=== PATIENT | male | born 1980 | race Two or more races ===

== ENCOUNTER 2024-05-07 19:21 | Emergency (ER) | payer BC, OTHER ==
[~2024-05-07] VITALS: Ht 177.8 cm; Wt 69.6 kg
[2024-05-07] MEDS ORDERED: CEPH250C PO (20:39)
[2024-05-07] MEDS ORDERED: IBUP-1455 PO (20:39)
[2024-05-07] MEDS: TETANUS-DIPTH-ACEL PERTUSSIS 0.5ML SYR Tdap IM ONE (21:20)
[2024-05-07 21:24] VITALS: BP 138/85; PULSE 83; RESP 17; TEMP 98.7; O2SAT 98
== END 2024-05-07 21:26 | disposition home or self-care (01) ==
LOC: ER 19:21
DX: S01.21XA Laceration without foreign body of nose, initial encounter (principal); V89.2XXA Person injured in unspecified motor-vehicle accident, traffic, initial encounter; Y93.89 Activity, other specified; Y92.89 Other specified places as the place of occurrence of the external cause; Y99.8 Other external cause status
CPT/HCPCS: 12011; 90471; 90715

== ENCOUNTER 2024-09-02 19:33 | Emergency (ER) | payer BC ==
[~2024-09-02] VITALS: Ht 172.7 cm; Wt 72.6 kg
[~2024-09-02 19:33] MED LIST: CEPH250C PO; IBUP-1455 PO
[2024-09-02 19:42] VITALS: BP 167/83; PULSE 84; RESP 18; O2SAT 98
--- NOTE | 2024-09-02 19:55 | ED.PDOC ---
History of Present Illness HPI Comments 44 y/o M, with a Hx of EtOH abuse, is BIBA for c/o laceration to his left- eyebrow s/p mechanical fall and injury and ALOC s/p EtOH intoxication, today. Per EMS report, patient was reported by family on scene to have consumed 4x beers prior to losing his balance and falling and hitting his head against the corner of a table, nearby, at home, this evening. Patient was stated to not have lost consciousness then and to have been uncooperative with EMS staff in following commands and answering questions on scene and en route to ED. Patient was reported to not have any additional relevant or pertinent Hx along with any recent additional substance use. Patient, at time of assessment, still remained intoxicated and uncooperative and states on wanting to leave against medical advice amidst attempts to convince him otherwise. Chief Complaint: ETOH Time Seen by MD: 19:30 Reviewed Notes: Nurses Notes, Back Stayer Notes, Medications, Allergies Allergies: Coded Allergies: NO KNOWN ALLERGIES (Unverified , 05/07/24) Home Meds Active Scripts Ibuprofen Micronized (Ibuprofen) 800 Mg Tab, 800 MG PO Q8HP PRN, #20 TAB Prov:COLEEN BO PAC 05/07/24 Cephalexin (KEFLEX CAPSULE) 250 Mg Cp, 1 CAP PO QID for 7 Days, #28 CAP Prov:COLEEN BO PAC 05/07/24 Information Source: Patient, Emergency Med Personnel Mode of Arrival: Ambulatory Severity: Moderate Timing: Hours Duration: Since onset Prehospital treatment: None Past Medical History PAST MEDICAL HISTORY: Denies Surgical History: Denies all surgeries Family History Family History: Reviewed,noncontributory to illness, No family hx of Cancer, No family hx of DM, No family hx of Heart olaf, No family hx of HTN, No family hx ofKidney olaf, No family hx of Liver olaf, No family hx of Lung olaf, No family hx of Stroke Social History Smoker: Non-Smoker Alcohol: Heavy Drugs: Denies Drug Use Lives In: Home Constitutional: denies: chills, diaphoresis, fatigue, fever, malaise, sweats, weakness, others EENTM: denies: blurred vision, double vision, ear bleeding, ear discharge, ear drainage, ear pain, ear ringing, eye pain, eye redness, hearing loss, mouth pain, mouth swelling, nasal discharge, nose bleeding, nose congestion, nose pain, photophobia, tearing, throat pain, throat swelling, voice changes, others Respiratory: denies: cough, hemoptysis, orthopnea, SOB at rest, shortness of breath, SOB with excertion, stridor, wheezing, others Cardiovascular: denies: chest pain, dizzy spells, diaphoresis, Dyspnea on exertion, edema, irregular heart beat, left arm pain, lightheadedness, palpitations, PND, syncope, others Gastrointestinal: denies: abdomen distended, abdominal pain, blood streaked bowels, constipated, diarrhea, dysphagia, difficulty swallowing, hematemesis, melena, nausea, poor appetite, poor fluid intake, rectal bleeding, rectal pain, vomiting, others Genitourinary: denies: burning, dysuria, flank pain, frequency, hematuria, incontinence, penile discharge, penile sore, pain, testicle pain, testicle swelling, urgency, others Neurological: reports: others (ALOC); denies: dizziness, fainting, headache, left sided numbness, left sided weakness, numbness, paresthesia, pre-existing deficit, right sided numbness, right sided weakness, seizure, speech problems, tingling, tremors, weakness Musculoskeletal: denies: back pain, gout, joint pain, joint swelling, muscle pain, muscle stiffness, neck pain, others Integumetry: reports: laceration (left-eyebrow); denies: bruises, change in color, change in hair/nails, dryness, lesions, lumps, rash, wounds, others Allergic/Immunocompromised: denies: Difficulty Healing, Frequent Infections, Hives, Itching, others Hematologic/Lymphatic: denies: anemia, blood clots, easy bleeding, easy bruising, swollen glands, others Endocrine: denies: excessive hunger, excessive sweating, excessive thirst, excessive urination, flushing, intolerance to cold, intolerance to heat, unexplained weight gain, unexplained weight loss, others Psychiatric: denies: anxiety, bipolar disorder, depression, hopeless, panic disorder, schizophrenia, sleepless, suicidal, others All Other Systems: Reviewed and Negative Physical Exam General Appearance: Moderate Distress, Normal, Other (alcohol breathe, intoxicated ) HEENT: Normal ENT Inspection, Pharynx Normal, TMs Normal Neck: Full Range of Motion, Non-Tender, Normal, Normal Inspection Respiratory: Chest Non-Tender, Lungs Clear, No Accessory Muscle Use, No Respiratory Distress, Normal Breath Sounds, Other (Alcohol on his breath) Cardiovascular: No Edema, No JVD, No Murmur, No Gallop, Normal Peripheral Pulses, Regular Rate/Rhythm Breast Exam: Deferred Gastrointestinal: No Organomegaly, Non Tender, No Pulsatile Mass, Normal Bowel Sounds, Soft Genitalia: Deferred Pelvic: Deferred Rectal: Deferred Extremities: No calf tenderness, Normal capillary refill, Normal inspection, Normal range of motion, Non-tender, No pedal edema Musculoskeletal : Apperance: Normal Neurologic: Alert, test data developer II-XII nml as Tested, No Motor Deficits, Normal Affect, Normal Mood, No Sensory Deficits Cerebellar Function: Normal Reflexes: Normal Skin: Dry, Lacerations (2.5cm laceration to left eyebrow), Normal Color, Warm Lymphatic: No Adenopathy Was a procedure done? Was a procedure done?: No Differential Dx Considerations may include: laceration, EtOH intoxication, substance abuse X-Ray, Labs, Meds, VS Vital Signs Date Time Temp Pulse Resp B/P (MAP) Pulse Ox O2 Delivery O2 Flow Rate FiO2 09/02/24 19:42 98.2 84 18 167/83 (111) 98 The patient wants to sign out against medical advice. He refused call for a. He walks in and out of the emergency room with commissioned security officer surrounding him. He he is severely intoxicated with alcohol. Patient was screened with an assessment of cognitive status and the testing revealed no signs of cognitive impairment. The patient is alert and oriented to person, place, and time. Patient gives appropriate answers and speaks coherently. The Glascow Coma Score is 15. A repeat gross neurologic exam shows no abnormalities. The patient was not in pain or distracted during our discussion. The patient exhibited no signs of depression, psychosis or tangential / delu sional thinking. Normal thought process. Patient has no auditory or visual hallucinations. Patient has no suicidal or homicidal ideations. Had in-depth discussion with patient about possible diagnosis. All clinical information and issues discussed with patient. The patient understands the medical condition. We discussed our proposed treatment, alternatives, and risks and benefits of both. Patient aware of recommendations. Had extensive discussion with patient regarding the risks of refusing our recommended treatment and disposition plans which includes but not exclusive to , brain damage, neurologic dysfunction, permanent mental impairment, worsening of symptoms, loss of limb, loss of ability to function, loss of sexual function and loss of current lifestyle and worsening of condition. Despite repeating my recommendations and patient expressing understanding of these risks, patient still wanted to leave. Patient signed out AMA and accepted all risks. Patient offered appropriate clinic follow-ups and prescriptions. Patient instructed to return to our ED or the closest ED if ANY exacerbation of symptoms. Time of 1ST Reevaluation: 20:00 Reevaluation 1ST: Unchanged Patient Education/Counseling: Diagnosis, Treatment Family Education/Counseling: No Family Present Departure 1 Departure Time of Disposition: 20:03 Impression: Primary Impression: Simple laceration of face Qualified Codes: S01.81XA - Laceration without foreign body of other part of head, initial encounter Additional Impression: Alcohol intoxication Qualified Codes: F10.929 - Alcohol use, unspecified with intoxication, unspecified Disposition: 07 LEFT AWOL/ELOPED Condition: Guarded Additional Instructions: Reassessed patient, vital signs stable. Denies any new symptoms. Patient is able to tolerate PO and ambulate/be mobile at their baseline without concern. Risks and benefits of all medications given or prescribed, if any, discussed. All lab work, imaging and diagnostic studies were reviewed by me. The patient was counseled extensively on my clinical impression, diagnosis, expected course of the disease, and plan, including their follow-up care. Will discharge patient. Patient instructed to follow up with Primary Care Physician within 24-48 hours. Strict return precautions given for further exacerbation of symptoms or for new symptoms. The patient was given the opportunity to ask questions and all questions were answered by myself and the nursing/tech staff. Patient is in agreement with the care plan. The patient verbally expressed understanding of the discharge instructions, including the reasons to return to the Emergency Department. Discharged With: Self Critical Care Note Critical Care Time?: No Stability Stability form required: No Heart Score Heart Score: Heart Score Response (Comments) Value History N/A 0 EKG N/A 0 Age N/A 0 Risk Factors N/A 0 Troponin N/A 0 Total 0 I personally scribed for SELAM PAGAN MD ([email or web address]) on 09/02/24 at 19:55. Electronically submitted by Vimal Arriaga ([email or web address]). SELAM PAGAN MD Sep 02, 2024 19:55
== END 2024-09-02 19:42 | disposition left against medical advice (07) ==
LOC: EDBD 19:33 → ER 19:33
DX: S01.112A Laceration without foreign body of left eyelid and periocular area, initial encounter (principal); F10.129 Alcohol abuse with intoxication, unspecified; Z79.899 Other long term (current) drug therapy; W18.39XA Other fall on same level, initial encounter; Y93.89 Activity, other specified; Y92.89 Other specified places as the place of occurrence of the external cause; Y99.8 Other external cause status; Y90.0 Blood alcohol level of less than 20 mg/100 ml